=== PATIENT | male | born 1960 | race African-American/Black ===

== ENCOUNTER 2020-03-12 02:59 | Emergency (ER) | payer MEDICAID ==
[~2020-03-12] VITALS: Ht 188 cm; Wt 108.9 kg
[2020-03-12 03:00] VITALS: Ht 188 cm; Wt 108.9 kg
[2020-03-12 05:00] LABS: BASOPHIL % 0.4 % (0-2); PLATELET COUNT 344 x10^3mcL (130-400); RED CELL DISTRIBUTION WIDTH 15.2 % (11.5-14.5)
[2020-03-12 05:08] LABS: CALCIUM 8.9 mg/dL (8.5-10.1); CARBON DIOXIDE 31.2 mmol/L (21-32); CHLORIDE SERUM 105 mmol/L (98-107); CREATININE SERUM 0.9 mg/dL (0.7-1.3); GFR1 > 60 mL/min; GLUCOSE SERUM 141 mg/dL (74-106); POTASSIUM SERUM 3.7 mmol/L (3.5-5.1); SODIUM SERUM 143 mmol/L (136-145)
[2020-03-12 05:12] LABS: ALKALINE PHOSPHATASE 75 U/L (46-116); ALT/SGPT 23 U/L (16-63); AST/SGOT 13 U/L (15-37); BILIRUBIN TOTAL 0.19 mg/dL (0.20-1.00); C REACTIVE PROTEIN 1.9 mg/dL (<=0.9); TOTAL PROTEIN, SERUM 6.7 g/dL (6.4-8.2); URIC ACID 4.8 mg/dL (3.5-7.2)
[2020-03-12 05:13] LABS: ALBUMIN 2.4 g/dL (3.4-5.0)
[2020-03-12 05:53] LABS: ERYTHROCYTE SED RATE 53 mm/hr (0-20)
[2020-03-12 06:35] VITALS: BP 130/72
== END 2020-03-12 06:35 | disposition home or self-care (01) ==
LOC: ED 02:59
PROVIDERS: Emergency Medicine
DX: R60.0 Localized edema (principal); I10 Essential (primary) hypertension; E11.9 Type 2 diabetes mellitus without complications; Q27.39 Arteriovenous malformation, other site
CPT/HCPCS: 83880; J1885; Q0092